=== PATIENT | male | born 1940 | race Caucasian/White ===

== ENCOUNTER → 2017-02-28 | Day surgery (SDC) | payer MEDICARE, BC ==
[~2017-02-28] VITALS: Ht 175.3 cm; Wt 89.0 kg
[~2017-02-28] MED LIST: ASPIRIN EC81 MG PO; ATORVASTATIN CA40 MG PO; CPAP INH; FOLIC ACID1 MG PO; LEVOTHROID (S100 MCG PO; NORCO 5-325 TA1 EACH PO; OCUVITE SOFTGE1 EACH PO; PRINIVIL OR ZES10 MG PO; THERA-VITE W/ B1 TAB PO
--- NOTE | ~2017-02-28 | HP ---
PATIENT'S NAME: EMERITA JOHNSON [facility] AGE: 76 Y [address] ROOM: [place] [address] [place] [facility] [place] DATE: 02/28/2017 History & Physical DISCHARGE DATE: FAMILY PHYSICIAN: Nickolas Lemus MD ATTENDING PHYSICIAN: Delfina Flores DATE OF SERVICE: CHIEF COMPLAINT: Blood in the urine and bladder tumor. HISTORY: This is a 76-year-old gentleman who was in [place] this winter. He developed gross hematuria. He had been in touch by phone. I had recommended to get a CT scan while he was down there. He had a contrasted CT scan on January 20. There were no obvious upper tract issues. He has a remote history of prostate cancer. He was treated in [place] close to 20 years ago. I did his biopsy in 1996. He subsequently had a surgery in [place]. He had a biochemical persistence versus failure. Regardless, he ended up getting additional radiation therapy in [place]. He got a full course of adjuvant radiation. I have not seen him professionally since 1997. He has done well from that standpoint. He tells me Dr. Lemus has checked his PSAs, and they have been "zero." With the gross hematuria, we would have a radiation cystitis in the differential, you would expect a delayed presentation. He is not a smoker. He does have a history of cardiac disease, but only relevant medication is daily aspirin. With all that history, I recommended cystoscopy. He was prepped and draped. The urethra was unremarkable. The bladder itself demonstrates some telangiectasias consistent with mild radiation cystitis. However, we see some heaped up papillary tissue at the bladder neck and posteriorly towards the left. It is suspicious for transitional cell carcinoma. He presents at this time for cystoscopy with retrograde evaluation and transurethral resection of these lesions. PAST MEDICAL HISTORY: Much of his past history is as alluded to above. Has cardiac disease and remote history of prostate cancer. He also has peripheral vascular disease. He has had cardiac stents as well as peripheral stents. He had polio as a child. MEDICATIONS: PATIENT'S NAME: EMERITA JOHNSON [facility] AGE: 76 Y [address] ROOM: [place] [address] LOC[place]: [facility] [place] DATE: 02/28/2017 History & Physical DISCHARGE DATE: FAMILY PHYSICIAN: Nickolas Lemus MD ATTENDING PHYSICIAN: Delfina Flores 1. Lisinopril. 2. Synthroid. 3. Lipitor. 4. Vitamins. 5. Fish oil. 6. Aspirin. ALLERGIES: NONE. REVIEW OF SYSTEMS: His system review is remarkable for some occasional sluggishness. He tends toward constipation. The only other pertinent positive was the blood in his urine. FAMILY HISTORY: Noncontributory. SOCIAL HISTORY: and lives with his here in [place]. He remains quite active. He does not smoke. He is a social drinker. PHYSICAL EXAM: GENERAL: Anthony appears his usual pleasant self. VITAL SIGNS: Blood pressure 164/82 with a pulse of 82. He is 5 feet 9 inches and 210 pounds. HEART: Regular. LUNGS: Clear. ABDOMEN: Reveals no mass or tenderness. : Reveals normal external genitalia. Cystoscopic findings are as above. EXTREMITIES: No clubbing, cyanosis, or edema. IMPRESSION: 1. Gross and painless hematuria. 2. Remote history of prostate cancer, status post surgery and radiation. 3. Bladder mass as described above. 4. Mild radiation cystitis. PLAN: Cystoscopy, retrograde evaluation, and transurethral resection of the bladder lesions. The patient understands the plan as well as the attendant risks and benefits. He has had his questions answered, and he wishes to proceed. PATIENT'S NAME: EMERITA JOHNSON [facility] AGE: 76 Y [address] ROOM: [place] [address] LOCATION: [facility] [place]MIT DATE: 02/28/2017 History & Physical DISCHARGE DATE: FAMILY PHYSICIAN: Nickolas Lemus MD ATTENDING PHYSICIAN: Delfina Flores DELFINA FLORES MD [facility]/modl /[id number] CC: Nickolas Lemus MD D: [id number] T: 520 HISTORY & PHYSICAL
--- NOTE | ~2017-02-28 | OR ---
PATIENT'S NAME: EMERITA JOHNSON [facility] AGE: 76 Y [address] ROOM: [place] [address] LOCATION: [facility] [place] DATE: 02/28/2017 OR/Procedure Report DISCHARGE DATE: FAMILY PHYSICIAN: Nickolas Lemsu MD ATTENDING PHYSICIAN: Delfina Flores SURGEON: Delfina Flores MD FRUIT RANCHER: DATE OF PROCEDURE: 02/28/2017 PREOPERATIVE DIAGNOSES: 1. Gross hematuria. 2. 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 3. Mild radiation cystitis. 4. Remote history of prostate cancer status post radiation and surgery. 5. Peripheral vascular disease. 6. Coronary artery disease. SURGICAL PROCEDURE: 1. Cystoscopy and retrograde. 2. Transurethral resection of bladder tumors. ANESTHESIA: General. INDICATION: This is a 76-year-old gentleman with the above-noted diagnoses. He had developed gross hematuria recently while in [place]. He had a CT scan done. He had no obvious mass lesions. He has remote history of prostate cancer having undergone surgery and radiation in [place] in the . He underwent cystoscopy. He is found to have some mild changes of radiation cystitis. However, he is also found to have heaped up urothelial tissue on the left side of the bladder suspicious for urothelial carcinoma. He presents at this time for cystoscopy and retrograde evaluation of his upper tracts and transurethral resection of these lesions. PROCEDURE IN DETAIL: Having obtained his informed consent, the patient taken to operating room. He was prepped and draped sterilely and in lithotomy position. A brief general anesthetic was administered. The 21-Lao cystoscope was assembled and guided into the urethra. The course of the urethra was unremarkable back to his prostatic urethra which is surgically absent. The sphincter was intact. Moving into the bladder, we see the obvious 5 mm papillary lesion just inside the left bladder neck. We see another papillary lesion straight posterior. We also see heaped up suspicious tissue on the left lateral wall. Bladder examination was confirmed with a 70- degree lens. Preliminary survey was undertaken fluoroscopically. He has clips in his PATIENT'S NAME: EMERITA JOHNSON [facility] AGE: 76 Y [address] ROOM: [place] [address] LOCATION: [facility] [place]MIT DATE: 02/28/2017 OR/Procedure Report DISCHARGE DATE: FAMILY PHYSICIAN: Nickolas Lemus MD ATTENDING PHYSICIAN: Delfina Flores pelvis from his prior prostatectomy. He has a phlebolith on the right side. Bowel gas pattern and soft tissue outlines are otherwise unremarkable. Contrast is instilled bilaterally with a whistle-tip catheter. Both ureters are narrow and delicate with no filling defects. There was no evidence of obstruction. The calices are finely cupped. The retrogrades were felt to be unremarkable. I then placed the resectoscope. I resected the left-sided lesions and sent them separately. The smaller lesion posteriorly is simply cauterized. I then placed the rollerball and aggressively cauterized the base and the periphery of the resection sites. We were well away from the orifices or the intramural tunnels. At the conclusion, the irrigation was turned off. A check was made for hemostasis. The bladder was drained and the case was concluded. The patient tolerated the procedure well. ESTIMATED BLOOD LOSS: Minimal. The above-noted specimens were sent. The patient returned to recovery awake in stable condition. DELFINA FLORES MD [facility]/modl /[id number] CC: Nickolas Lemus MD d: 02/28/17 1332 t: 03/04/17 1523, OPERATIVE SUMMARY
[2017-02-28 07:16] LABS: BASOPHIL # 0.1 K/uL (0.0-0.2); EOSINOPHIL # 0.2 K/uL (0.0-0.5); EOSINOPHIL % 4.7 %; HEMATOCRIT 43.3 % (37.0-53.0); HEMOGLOBIN 14.5 g/dL (11.0-16.0); IMMATURE GRANULOCYTE % 0.2 %; LYMPHOCYTE # 1.9 K/uL (0.8-4.0); LYMPHOCYTE % 38.5 %; MCHC 33.5 gm/dL (32.0-36.5); MCV 92.7 fl (83.0-98.0); MONOCYTE # 0.4 K/uL (0.0-1.0); MONOCYTE % 8.2 %; MPV 9.8 fl (9.4-12.4); NEUTROPHIL # (ANC) 2.3 K/uL (1.4-9.0); NEUTROPHIL % 47.4 %; NRBC % 0 /100WBC (0-0.00); PLATELET COUNT 143 K/uL (150-450); RBC 4.67 M/uL (3.50-5.50); RDW-CV 12.9 % (11.9-14.6); WBC 4.9 K/uL (4.0-11.0)
== END | disposition disaster alternative care site (69) ==
LOC: GPOC 02-24 09:00 → GSDC 06:29 → GPOC 09:00 → GSDC 09:00 → GPOC 03-02 09:00
PROVIDERS: Urology
PROC: BT14ZZZ Fluoroscopy of Kidneys, Ureters and Bladder (ICD-10-PCS; principal; 2017-02-28)
PROC: 0TBB8ZZ Excision of Bladder, Via Natural or Artificial Opening Endoscopic (ICD-10-PCS; 2017-02-28)
DX: C67.0 Malignant neoplasm of trigone of bladder (principal); C67.2 Malignant neoplasm of lateral wall of bladder; N30.41 Irradiation cystitis with hematuria; I25.10 Atherosclerotic heart disease of native coronary artery without angina pectoris; I73.9 Peripheral vascular disease, unspecified; Z85.46 Personal history of malignant neoplasm of prostate
CPT/HCPCS: J1956; J7030